=== PATIENT | male | born 1940 | race African-American/Black ===

== ENCOUNTER 2020-07-04 14:12 | Emergency (ER) | payer MEDICARE, MEDICAID ==
[~2020-07-04] VITALS: Ht 182.9 cm; Wt 113.6 kg
[~2020-07-04 14:12] MED LIST: ACTOS30 MG PO; ACTOS45 MG PO; ALEVE220 M1 OR; AMLODIPINE10 MG PO; ATACAND8 MG PO; ATENOLOL50 MG PO; CARDURA4 MG PO; CATAPRES0.2 MG PO; CATAPRES0.3 MG PO; FLUZONE SPLT1 M1 IM; FUROSEMIDE40 MG PO; GLIPIZIDE ER2.5 MG PO; GLIPIZIDE ER5 MG PO; GLIPIZIDE5 MG PO; HYDRALAZINE25 MG PO; HYDROCHLOROT25 MG PO; HYZAAR1 TA2 PO; KEFLEX500 MG PO; LASIX 20 MG TAB20 MG PO; LASIX 20 MG20 MG/TAB PO; LOSARTAN POT100 MG PO; LOSARTAN/HCT1 TA1 PO; LOSARTAN/HCT1 TA2 PO; METFORMIN1000 MG PO; METOCLOPRAM5 MG PO; METOCLOPRAMIDE H5 MG PO; NIFEDIPINE90 M1 PO; OMEPRAZOLE20 MG OR; OMEPRAZOLE20 MG PO; PLAVIX75 MG PO; PRILOSEC20 MG PO; REGLAN5 MG OR; SIMVASTATIN40 MG OR; SIMVASTATIN40 MG PO; SIMVASTATIN80 MG; TEKTURNA150 MG PO; TENORMIN50 MG PO; TRAVATAN0.004 % OP; TRAVATAN0.0041 OS
[2020-07-04 15:20] LABS: HEMATOCRIT 26.2 % (39.0-50.0); HEMOGLOBIN 8.2 g/dl (14.0-18.0); IMMATURE GRANULOCYTES 0.6 % (0.0-5.0); MEAN CELL VOLUME 93.2 fL CALC (80.0-100.0); MEAN CORPUSCULAR HGB 29.2 pG CALC (26.0-32.0); MEAN CORPUSCULAR HGB CONC 31.3 g/dL CAL (32.0-36.0); NEUT# 6.32 thou/uL (1.82-7.42); RED BLOOD COUNT 2.81 mill/uL (4.70-6.10); RED CELL DISTRI WIDTH 13.9 % (11.5-15.5)
[2020-07-04 15:37] LABS: ALBUMIN 3.7 g/dL (3.2-5.0); POTASSIUM 3.7 mmol/l (3.5-5.1); TOTAL PROTEIN 7.6 g/dL (6.3-8.2)
[2020-07-04 15:38] LABS: BILIRUBIN, TOTAL 0.7 mg/dL (0.0-1.4); CREATININE 4.6 mg/dL (0.7-1.3)
[2020-07-04 16:12] VITALS: BP 121/61
== END 2020-07-04 16:05 ==
LOC: ED 14:12
PROVIDERS: Family Medicine
DX: E11.52 Type 2 diabetes mellitus with diabetic peripheral angiopathy with gangrene (principal); I96 Gangrene, not elsewhere classified; E11.22 Type 2 diabetes mellitus with diabetic chronic kidney disease; N18.6 End stage renal disease; Z99.2 Dependence on renal dialysis; Z79.84 Long term (current) use of oral hypoglycemic drugs; Z11.59 Encounter for screening for other viral diseases